=== PATIENT | male | born 1995 | race Caucasian/White ===

== ENCOUNTER 2023-11-06 10:31 | Inpatient (IN) ==
--- NOTE | 2023-10-17 13:54 | PAT Medication Instructions ---
Medication Instructions Date of Service October 17, 2023 Home Medications Medication Instructions Recorded topiramate 100 mg capsule 200 mg (2 x 100 mg) PO DAILY 02/02/23 sprinkle,extended release 24 hr days #60 ea multivitamin 1 tab PO DAILY sumatriptan succinate 100 mg tablet 100 mg PO DIRECTED PRN vitamin B complex 1 tab PO DAILY naproxen 500 mg tablet 500 mg PO DAILY PRN topiramate 100 mg capsule sprinkle,extended release 24 hr 200 mg (2 x 100 mg) PO DAILY sertraline 100 mg tablet 100 mg PO QAM Continue as directed topiramate 100 mg capsule sprinkle,extended release 24 hr 200 mg (2 x 100 mg) PO DAILY sumatriptan succinate 100 mg tablet 100 mg PO DIRECTED PRN(if needed) ASK your surgeon for instructions naproxen 500 mg tablet 500 mg PO DAILY PRN DO NOT take the morning of surgery multivitamin 1 tab PO DAILY vitamin B complex 1 tab PO DAILY Take morning of surgery With a small sip of water, OTHERWISE NOTHING TO EAT OR DRINK AFTER MIDNIGHT: sertraline 100 mg tablet 100 mg PO QAM Other Notes If you have any questions please call us at [phone] or [phone] or [phone] or [phone]
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
[~2023-11-06 10:31] MED LIST: ACETAMINOPHEN 500 MG TAB PO SCH; CeleBREX 200 MG CAP PO SCH; GABAPENTIN 900 MG DOSE PO SCH; LR 15ML/HR IV SCH; LR 60ML/HR IV SCH
[2023-11-06] MEDS ORDERED: fentaNYL citrate PF 100 MCG/2 ML VIAL ONE ×2 (10:50→13:12)
[2023-11-06] MEDS ORDERED: MIDAZOLAM HCL 1 MG/ML 2ML VIAL ONE (10:50)
--- NOTE | 2023-11-06 12:10 | History & Physical Bridge Note ---
Date of Service November 06, 2023 History & Physical Bridge Note I have examined the patient, reviewed the History & Physical and in the interval since the performance of the History & Physical I have noted the following changes of clinical significance: no changes noted
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
[2023-11-06] MEDS ORDERED: ceFAZolin 330 MG/ML 1 GM VIAL ONE (12:20)
[2023-11-06] MEDS ORDERED: BUPIVACAINE/EPINEPHRINE 0.25% 1:200,000 30 ML VIAL ONE (12:20)
[2023-11-06] MEDS ORDERED: ONDANSETRON INJ 2 MG/ML 2 ML VIAL IV PRN ×2 (12:28→17:05)
[2023-11-06] MEDS ORDERED: ePHEDrine sulfate 50 MG/ML AMP IV PRN (12:28)
[2023-11-06] MEDS ORDERED: FLUMAZENIL 0.1 MG/1 ML 10 ML VIAL IV PRN (12:28)
[2023-11-06] MEDS ORDERED: ATROPINE SULFATE 0.1 MG/ML 10ML SYR IV PRN (12:28)
[2023-11-06] MEDS ORDERED: PROMETHAZINE HCL 12.5 MG in SODIUM CHLORIDE 0.9% 50 ML IV PRN ×2 (12:28→17:05)
[2023-11-06] MEDS ORDERED: NALOXONE HCL 0.4 MG/1 ML VIAL/CARP IV PRN ×2 (12:28→17:05)
[2023-11-06] MEDS ORDERED: ROCURONIUM BROMIDE 10 MG/ML 5 ML VIAL IV ONE ×2 (13:03→13:09)
[2023-11-06] MEDS ORDERED: PROPOFOL IV EMULSION 10 MG/ML 20 ML VIAL IV ONE (13:03)
[2023-11-06] MEDS ORDERED: LIDOCAINE 2% 2 ML VIAL/AMP(20MG/ML) INFIL ONE (13:03)
[2023-11-06] MEDS ORDERED: ONDANSETRON INJ 2 MG/ML 2 ML VIAL ONE (13:10)
[2023-11-06] MEDS ORDERED: DEXAMETHASONE SOD INJ 4 MG/ML VIAL ONE (13:10)
[2023-11-06] MEDS ORDERED: diphenhydrAMINE 50 MG/ML VIAL ONE (13:13)
[2023-11-06] MEDS ORDERED: ALBUTEROL HFA 8 GM INHALER INH ONE (13:14)
[2023-11-06] MEDS ORDERED: FLOSEAL HEMOSTATIC MATRIX 10ML TOP ONE (14:05)
[2023-11-06] MEDS ORDERED: SUGAMMADEX SODIUM 200 MG/2 ML VIAL IV ONE (14:08)
--- NOTE | 2023-11-06 14:44 | Operative Report ---
Post Operative Report Pre & Post Diagnosis Operation Date: 11/06/23 12:25 Pre-Op Diagnosis: (1) Neurogenic claudication due to lumbar spinal stenosis #2 lumbar epidural lipomatosis Post-Op Diagnosis: Same I identified the patient and participated in the time-out.: Yes Procedure Operation Date: 11/06/23 12:25 Actual Procedures #1 lumbar decompression with bilateral medial facetectomies and foraminotomies L3-L4, L4-5 and L5-S1. #2 posterior spinal fusion L4-L5 L5-S1. #3 placed posterior instrumentation L4-S1. #4 interbody fusion L4-5 L5-S1. #5 placement spiral 14 x 26 mm at L4-5 and 13 x 26 mm at L5-S1. #6 placement of locally harvested morselized autograft in the posterior gutters. #7 placement of Morpheus bone graft in the interbody space and infuse collagen sponge combined with close in the posterior lateral gutters. Surgeon Christo Toro, DO Dairy Truck Driver Willa Pastrana Estimated Blood Loss 850 Findings See Below The patient is 5 foot 10 weighing over 118 kg with a BMI in excess of 37. This combined with an EBL of 800 cc. Significant technical difficulty with positioning exposure and performing actual procedure itself. This at least 50% increased operative time. Specimens none Indications This is a 28-year-old male presents above-mentioned diagnosis of failed extensive course of nonoperative care is here for surgical invention. Description of Procedure Patient was met with identified informed consent obtained. Patient was then taken to the operative suite underwent patient placed in a prone position on the Roberto Carlos table top the Brendon frame. All bony promises well-padded I suspected to ensure no external precipice spinal. This point the lumbar spine was prepped and draped no sterile fashion. Sharp dissection the assistance of Bovie cautery from down to and exposing the lamina transverse processes of L4-5 and sacral ala bilaterally. For calcified fashion complete laminectomy L5 L4 partial laminectomy L3 was performed including bilaterally facetectomies and foraminotomies addressing spinal stenosis as well as epidural lipomatosis. After complete decompression pedicle screws were placed in L4-5 and S1 levels bilaterally with assistance of fluoroscopy and appropriate size handy placed. By way of transforaminal approach on the left complete discectomy of L4-5 S1 was performed endplates guarded to subcortical mean bone and a 13 x 26 mm Spira cage with I factor tapped in position. Then proceeded L4-[address] of transforaminal approach on the left complete discectomy performed endplates guarded to subcortical bleeding bone and a 14 x 26 mm Spira cage with I factor tapped in position. The rods were then compressed locked in final position bilaterally. The transverse processes of L4-5 and the sacral ala burred to subcortical bleeding bone. Infuse collagen sponge combined with Koros local autograft placed in the posterior gutters. 15 round drain drain inserted. The incision was then closed with 1 Vicryl to fascia 2-0 Vicryl subcutaneously and 4 Monocryl for fascial closure. Steri-Strips sterile dressing placed. Patient waken taken to PACU in stable condition. Please note spinal cord findings utilized at the procedure no changes noted. Zora Pastrana is present of the entire surgery and all the patient positioning complex portion of the surgery and final skin closure. I attest to the content of the Intraoperative Record and any orders documented therein. Any exceptions are noted below.
--- NOTE | 2023-11-06 14:51 | Fluoroscopy Report ---
INTRAOPERATIVE RADIOGRAPHS CLINICAL HISTORY: Lumbar spinal fusion surgery. Fluoro time: 24 seconds Ka,r: 21.36 mGy FINDINGS: 2 spot fluoroscopic views of the lumbar spine are presented. There has been discectomy at L 4-L5 and L5-S1 with laminectomy and posterior fusion at L4-S1. Interpedicular screws are present at a ll levels. The orthopedic hardware appears intact. IMPRESSION: Intraoperative images from lumbar spinal fusion surgery as above. Electronically signed by: Robin Bullard M.D. 11/06/2023 2:49 PM
[2023-11-06] MEDS: fentaNYL citrate PF 100 MCG/2 ML VIAL IV PRN ×4 (15:27→15:42)
[2023-11-06] MEDS: HYDROmorphone INJ 1 MG/ML SYRINGE IV PRN ×2 (16:05→16:10)
--- NOTE | 2023-11-06 16:24 | Anesthesiology Progress Note ---
Date of Service November 06, 2023 Anesthesia Post Procedure Vital Signs Vital Signs: Temp Pulse Resp BP Pulse Ox O2 Del Method O2 Flow Rate 11/06/23 16:10 97 H 20 114/69 97 Nasal Cannula 3 11/06/23 16:00 94 H 20 112/73 97 Nasal Cannula 3 11/06/23 15:50 97 H 12 123/78 97 Nasal Cannula 3 11/06/23 15:40 95 H 18 141/93 H 93 Nasal Cannula 3 11/06/23 15:30 94 H 20 134/91 93 Nasal Cannula 3 11/06/23 15:20 94 H 16 139/85 98 Oxymask 10 11/06/23 15:10 97 H 22 131/80 98 Oxymask 10 11/06/23 15:04 36.0 C L 109 H 25 H 121/73 98 Oxymask 10 11/06/23 11:15 36.8 C 93 H 20 154/100 H 97 Room Air Pain Intensity Lower Back: Pain Intensity: 5 Transfer of Care Handoff Completed per policy Notes Mental Status: alert / awake / arousable and participated in evaluation Patient Amnestic to Procedure: Yes Nausea / Vomiting: adequately controlled Pain: adequately controlled Airway Patency, RR, SpO2: stable & adequate BP & HR: stable & adequate Hydration State: stable & adequate Anesthetic Complications: no major complications apparent and Pt Satisfied with anesthetic care
[2023-11-06] MEDS ORDERED: LORazepam 0.5 MG in SYRINGE 0.25 ML IV PRN (17:05)
[2023-11-06] MEDS ORDERED: HYDROmorphone INJ 1 MG/ML SYRINGE IV PRN (17:05)
[2023-11-06] MEDS ORDERED: ALUMINUM/MAGNESIUM SUSP 30 ML UDC PO PRN (17:05)
[2023-11-06] MEDS ORDERED: diphenhydrAMINE Capsule 25 MG CAP PO PRN (17:05)
[2023-11-06] MEDS ORDERED: MAGNESIUM HYDROXIDE SUSP 30 ML UDC PO PRN (17:05)
[2023-11-06] MEDS ORDERED: hydrOXYzine HCl 25 MG TAB PO PRN (17:05)
[2023-11-06] MEDS ORDERED: ACETAMINOPHEN 1,000 MG/100 ML VIAL IV PRN (17:05)
[2023-11-06] MEDS ORDERED: ONDANSETRON 4 MG OD TAB PO PRN (17:05)
[2023-11-06] MEDS ORDERED: HYDROmorphone INJ 0.5 MG/0.5 ML SYR IV PRN (17:05)
[2023-11-06] MEDS ORDERED: DO NOT ADMINISTER PNEUMOCOCCAL VACCINE PRN (17:05)
[2023-11-06] MEDS ORDERED: LORazepam 0.5 MG TAB PO PRN (17:05)
[2023-11-06] MEDS ORDERED: SOD PHOSPHATE/SOD BIPHOSPHATE ENEMA 132 ML BTL PR PRN (17:05)
[2023-11-06] MEDS ORDERED: FAMOTIDINE 20 MG TAB PO PRN (17:05)
[2023-11-06] MEDS ORDERED: DO NOT ADMINISTER FLU VACCINE PRN (17:05)
[2023-11-06] MEDS ORDERED: bisacodyL 10 MG SUPP PR PRN (17:05)
[2023-11-06] MEDS ORDERED: METOCLOPRAMIDE HCL INJ 5 MG/ML 2 ML VIAL IV PRN (17:05)
[2023-11-06] MEDS ORDERED: SUMAtriptan succinate 100 MG TAB PO PRN (17:05)
[2023-11-06] MEDS: LACTATED RINGER'S 1,000 ML IV SCH ×2 (17:09→23:53)
[2023-11-06] MEDS: KETOROLAC 30 MG/ML VIAL IV SCH ×2 (17:42→23:53)
[2023-11-06] MEDS: ceFAZolin 2000MG 2,000 MG/15 ML SYR IV SCH (20:05)
[2023-11-06] MEDS: DOCUSATE SODIUM/SENNA 50/8.6MG TAB PO SCH (20:05)
[2023-11-07] MEDS: POLYETHYLENE (MIRALAX) 17 GM PACK PO SCH ×4 (05:04→23:08)
[2023-11-07] MEDS: ceFAZolin 2000MG 2,000 MG/15 ML SYR IV SCH (05:04)
[2023-11-07] MEDS: KETOROLAC 30 MG/ML VIAL IV SCH ×2 (05:04→11:18)
[2023-11-07] MEDS: oxyCODONE HCL IR 5 MG TAB (IMMEDIATE RELEASE) PO PRN ×4 (05:58→23:08)
[2023-11-07 07:48] LABS: Basophils # (auto) 0.03 K/uL (0.00-0.20); Basophils % (auto) 0.2 %; Eosinophils # (auto) 0.01 K/uL (0.00-0.50); Eosinophils % (auto) 0.1 %; Hematocrit (blood only) 34.1 % (42.0-52.0); Hemoglobin 11.5 g/dl (14.0-18.0); Immature Granulocytes # (auto) 0.07 K/uL (0.01-0.20); Immature Granulocytes % (auto) 0.5 %; Lymphocytes # (auto) 2.81 K/uL (1.20-3.40); Lymphocytes % (auto) 19.7 %; Mean Corpuscular Hemoglobin 29.1 pg (25.0-34.0); Mean Corpuscular Hgb Conc 33.7 g/dL (32.0-36.0); Mean Corpuscular Volume 86.3 fL (80.0-100.0); Monocytes # (auto) 1.16 K/uL (0.11-0.59); Monocytes % (auto) 8.1 %; Neutrophils # (auto) 10.16 K/uL (1.40-6.50); Neutrophils % (auto) 71.4 %; Platelet Count 102 K/uL (130-400); RDW Coefficient of Variation 12.5 % (11.5-14.5); RDW Standard Deviation 38.9 fL (36.4-46.3); Red Blood Count 3.95 M/uL (4.70-6.10); White Blood Count 14.24 K/ul (4.8-10.8)
[2023-11-07] MEDS: TOPIRAMATE 100 MG TAB PO SCH (07:58)
[2023-11-07] MEDS: dexAMETHasone 6 MG in SYRINGE 0 ML IV SCH (07:59)
[2023-11-07] MEDS: SERTRALINE HCL 100 MG TABLET PO SCH (07:59)
[2023-11-07 08:08] LABS: Calcium 8.9 mg/dl (8.6-10.3); Creatinine Clr Calc Pharmacy 165.8 ml/min; Est GFR (African American) 136.2 ml/min; Est GFR (Non-African American) 117.5 ml/min; Potassium 4.1 mmol/L (3.5-5.1)
[2023-11-07] MEDS: ACETAMINOPHEN 500 MG TAB PO PRN (09:19)
--- NOTE | 2023-11-07 14:08 | Orthopedic Progress Note ---
Date of Service November 07, 2023 Assessment & Plan (1) Neurogenic claudication due to lumbar spinal stenosis: Plan: At this time we will continue physical therapy monitor his HARJINDER output hopefully discharge home in the next few days. Admission and Anticipated Discharge Date Admission Date: November 06, 2023 Subjective Back pain controlled leg pain stable Physical Exam Physical Exam: Patient is in the chair at the bedside. Is good strength testing. Results & Data Vital Signs (Past 12 Hours) Vital Signs Temp Pulse Resp BP Pulse Ox O2 Del Method O2 Flow Rate 11/07/23 08:00 Room Air 11/07/23 07:09 36.5 C 75 18 97/61 L 95 Nasal Cannula 1 11/07/23 04:35 36.7 C 78 18 106/71 95 Nasal Cannula 1
[2023-11-07] MEDS: traMADol HCL 50 MG TABLET PO PRN ×2 (14:43→21:59)
[2023-11-07] MEDS: DOCUSATE SODIUM/SENNA 50/8.6MG TAB PO SCH (21:58)
[2023-11-08] MEDS: oxyCODONE HCL IR 5 MG TAB (IMMEDIATE RELEASE) PO PRN ×4 (04:23→21:31)
[2023-11-08] MEDS: POLYETHYLENE (MIRALAX) 17 GM PACK PO SCH ×4 (05:19→23:23)
[2023-11-08] MEDS: TOPIRAMATE 100 MG TAB PO SCH (08:08)
[2023-11-08] MEDS: dexAMETHasone 6 MG in SYRINGE 0 ML IV SCH (08:08)
[2023-11-08] MEDS: SERTRALINE HCL 100 MG TABLET PO SCH (08:08)
--- NOTE | 2023-11-08 11:44 | Orthopedic Progress Note ---
Date of Service November 08, 2023 Assessment & Plan (1) Neurogenic claudication due to lumbar spinal stenosis: Plan: Continue physical therapy monitor HARJINDER operatively discharge home tomorrow. Admission and Anticipated Discharge Date Admission Date: November 06, 2023 Subjective Back pain is controlled leg pain improved Physical Exam Physical Exam: At this time continue physical therapy monitor HARJINDER operatively discharge home tomorrow. Results & Data Vital Signs (Past 12 Hours) Vital Signs Temp Pulse Resp BP Pulse Ox O2 Del Method 11/08/23 07:29 36.5 C 87 16 103/57 L 97 Room Air
[2023-11-08] MEDS: DOCUSATE SODIUM/SENNA 50/8.6MG TAB PO SCH (21:28)
[2023-11-09] MEDS ORDERED: Nursing to Pharmacy Communication SCH (05:00)
[2023-11-09] MEDS: oxyCODONE HCL IR 5 MG TAB (IMMEDIATE RELEASE) PO PRN (06:11)
[2023-11-09] MEDS: dexAMETHasone 6 MG in SYRINGE 0 ML IV SCH (08:56)
[2023-11-09] MEDS: TOPIRAMATE 100 MG TAB PO SCH (08:56)
[2023-11-09] MEDS: SERTRALINE HCL 100 MG TABLET PO SCH (08:56)
--- NOTE | 2023-11-09 10:13 | Discharge Summary ---
Date of Service November 09, 2023 Admission HPI Per Admitting Provider This is a 28-year-old male presents with chronic persistent back and leg pain after failing course of nonoperative care is here for surgical invention. Principal Diagnosis Lumbar spinal stenosis with neurogenic claudication Discharge Data Allergies Allergy/AdvReac Type Severity Reaction Status Date / Time No Known Allergies Allergy Verified 11/06/23 11:17 Procedures Performed Operation Date: 11/06/23 12:25 Actual Procedures p L4-S1 Decompression and Fusion, Spinal Cord Monitoring - Christo Toro DO Ordered Studies 11/06/23 12:25 FL lumbar spine 2-3V Routine Hospital Course (1) Neurogenic claudication due to lumbar spinal stenosis: Patient 1 depression fusion trial as well as seeing orthopedic for postoperative. Postop he progressed appropriately. HARJINDER drain decreasing appropriately. Extra strength testing. Subsequent discharge home. Discharge orders instructions from the chart for review Total Time Total Time Spent Total Time Spent (In Minutes): 20 minutes Discharge Plan Discharge Items Patient Disposition: Home - Self-Care Reason For Visit: POSTOP Discharge Diagnosis: Lumbar spinal stenosis with neurogenic claudication Activity: As commented below Non-emergency contact: Primary Care Provider Call non-emergency contact if: you have any medication questions Follow-up/Referrals: Allegra Oropeza D.O. [Primary Care Provider] - Diet: Regular Addtl Attending Provider Instructions: ACTIVITY RECOMMENDATIONS: SELF CARE INSTRUCTIONS AFTER THORACIC/LUMBAR FUSIONS 1. You may walk to your tolerance. It is good exercise for your legs and back. Expect some back and intermittent leg aches and pains. 2. You may perform "counter-top" level activities (make a sandwich, rhonda with a project, etc.). 3. No bending or lifting of more than 10 pounds or back twisting of any nature (roll like a log when turning in bed). 4. You may ride in a car for 20-30 minutes at a time. No driving until after your first visit with your doctor. 5. Frequent changes of position and restricting sitting to 30 minutes at a time will help limit the amount of back spasms and stiffness you may experience. 6. You may discontinue the use of ambulatory aids (cane, crutches, etc.) once your strength and confidence allow. 7. You may computer science intern the shower and let water strike your incision when you arrive home at least once daily. Do not take a tub bath, sit in a hot tub or go into a swimming pool until after your first recheck in the office. SPECIAL CARE INSTRUCTIONS: VERY IMPORTANT TO READ AND REVIEW A. Your surgical incision has been closed with a cosmetic suture under the skin that will dissolve in about 6 weeks. In 14 days, you can use a pair of clean scissors and cut the suture that is left outside of the skin at the ends of your incision. 1. The small skin tapes can be removed 7 days after surgery if they have not fallen off by that point. 2. You may keep the wound open to air as much as possible to promote healing after post-op day number 5 unless told otherwise by your doctor. 3. If you think the wound looks like it is becoming infected (redness or worsening drainage) and/or you are experiencing fever, chill or worsening back pain and muscle spasms, contact the office so that we may evaluate you as soon as possible. B. Complications are uncommon, but please contact us if you have any signs or symptoms of: 1. wound infection (fever higher than 102.5 degrees F, redness, separation of wound, drainage, or increasing pain from the incision) 2. blood clots in legs (pain, swelling, redness and warmth in legs) 3. urinary tract infection (fever higher than 102.5 degrees F, burning upon urination or increased frequency of urination) 4. nerve problems (inability to walk on your toes or heels, numbness, loss of bowel or bladder control) 5. any other symptoms that concern you C. Please call the office at if you have any concerns or questions about your operation or recovery. D. No smoking! Smoking drastically decreases the chance of a solid fusion. E. Do not take any anti-inflammatory medications (Indocin, Advil, Motrin, Aspirin, Naprosyn, etc.) as these may inhibit the chance of a solid fusion. Tylenol is okay to take for pain. MANAGING PAIN AFTER SPINAL SURGERY 1. Narcotic medication is intended for short-term use and will be provided for surgical pain. Surgical pain usually lasts for a period of 4-6 weeks. Narcotic medication includes Percocet, Vicodin, Darvocet, Tylenol #3 or Lortab. 2. Longer-term pain is more appropriately treated with non-narcotic medication such as Tylenol ES. 3. Muscle spasm is not appropriately treated with narcotics. Muscle relaxers such as Soma, Flexeril or Skelaxin can be used along with Tylenol ES. 4. Remember that we all live with some "aches and pains". This is not unusual or uncommon after an injury or as we get older. a. Back pain is expected and may include muscle spasms for 4 to 6 weeks after surgery. The pain should gradually improve. If the pain worsens for no apparent reason, please contact the office. b. Intermittent leg pain may also be experienced and should not be concerned about unless it worsens for no apparent reason. If so, please contact the office. 5. We will provide appropriate medication within the normal guidelines of their prescribed use. We will also be very cautious and aware of potential abuse and extended duration of patients' medication needs. a. Pain medications are for your comfort and to assist with sleep and rest so that the tissue can heal. They are not provided in order to return to normal activity and should not be used through the day. To do so or worsening pain at night can result from ongoing tissue damage and development of tolerance to the prescribed medicine. 6. Please allow 2-3 days to process refills. Prescriptions will not be mailed but must be picked up at the office. FOLLOW UP VISIT: Keep your scheduled follow-up appointment. Any questions, please call the office at . Pending Studies at Discharge: No Stand-Alone Forms: My [facility] [place], Smoking Cessation Medications and DC Order Prescriptions: New tramadol 50 mg tablet 50 mg PO Q6H PRN (Reason: pain, moderate) Qty: 30 0RF oxycodone 5 mg tablet 5 mg PO Q6H PRN (Reason: pain) Qty: 30 0RF Continued topiramate 100 mg capsule,sprinkle,ER 24hr 200 mg PO DAILY 30 Days Qty: 60 5RF multivitamin Tablet 1 tab PO DAILY sumatriptan succinate 100 mg tablet 100 mg PO DIRECTED PRN (Reason: Migraine Headache) vitamin B complex Tablet 1 tab PO DAILY sertraline 100 mg Tablet 100 mg PO QAM Discontinued naproxen 500 mg tablet 500 mg PO DAILY PRN (Reason: Pain) Discharge Orders: Discharge Order (Routine); Ordered 11/09/23 Ordered By: Christo Toro Admission Data Admit Date/Time: 11/06/23 14:50 Attending Provider: Christo Toro Admit Provider: Christo Toro Primary Care Provider: Allegra Oropeza
[2023-11-09] MEDS: DOCUSATE SODIUM/SENNA 50/8.6MG TAB PO SCH (22:08)
[2023-11-10] MEDS: TOPIRAMATE 100 MG TAB PO SCH (07:49)
[2023-11-10] MEDS: SERTRALINE HCL 100 MG TABLET PO SCH (07:49)
[2023-11-10] MEDS: ACETAMINOPHEN 500 MG TAB PO PRN (10:53)
== END 2023-11-10 11:20 | disposition home or self-care (01) | DRG 455 ==
LOC: ASU 10:31 → 3E 14:50